=== PATIENT | female | born 1950 | race Caucasian/White ===

== ENCOUNTER 2023-09-29 17:07 | Inpatient (IN) | payer MEDICARE, SELFPAY ==
--- NOTE | ~2023-09-29 | US_ITS ---
EXAMINATION: US venous doppler [facility] DATE: 09/30/2023 09:03 INDICATION: Lower limb swelling. TECHNIQUE: Grayscale ultrasound images without and with compression and Doppler ultrasound images of the bilateral lower extremity veins were obtained. COMPARISON: None. FINDINGS: The visualized portions of right common femoral vein, profunda (deep) femoral vein, femoral vein, pop liteal vein, peroneal veins, posterior tibial veins, and greater saphenous vein outflow are patent. The visualized portions of left common femoral vein, profunda femoral vein, femoral vein, popliteal v ein, peroneal veins, posterior tibial veins, and greater saphenous vein outflow are patent. IMPRESSION: 1. No deep venous thrombosis. Reviewed, dictated and finalized at location A.
--- NOTE | ~2023-09-29 | XR_ITS ---
EXAMINATION: XR chest 1V portable Exam Date/Time: 09/29/2023 17:28 CDT HISTORY: afib RVR Comparison: None. RESULT: Lines, tubes, and devices: None. Lungs and pleura: Bilateral mild costophrenic angle blunting, greater in the right. Emphysematous/se nescent change. Cardiomediastinal silhouette: Mild cardiomegaly versus accentuation by portable technique. Atheroscl erotic arch calcification. Calcified nodes. Other: No acute osseous or upper abdominal finding. IMPRESSION: Likely emphysematous change. Small bilateral pleural effusions versus chronic pleural blunting. Reviewed, dictated and finalized at location K. IMPRESSION: Likely emphysematous change. Small bilateral pleural effusions versus chronic p leural blunting.
--- NOTE | 2023-09-29 17:08 | ADMGEN ---
This patient, Corinne Park, was admitted to IMU Room 232-01 at 1645. Patient/family oriented to hospital policies and general routines including ID bracelet, bed and alarms, visiting hours, pain management, procedures, bathroom and other care routines, personal items, smoking policy, room service/diet, and visiting hours. Information on how to activate the Rapid Response Team has been discussed. Patient/Family are encouraged to report perceived risks to care and to ask questions if they do not understand what they are told or what they should do.
--- NOTE | 2023-09-29 17:11 | PM.IMHP ---
H&P: HPI History of Present Illness Date/Time: 09/29/23 17:11 Chief Complaint: Shortness of Breath and leg swelling, Afib RVR Narrative: This is a 72-year-old female patient unknown past medical history because she has not seen a medical provider for over 15 years. Patient came to the emergency department at [facility] in [place] today due to leg swelling and shortness of breath. Symptoms onset about 1 week ago and have been progressive in nature. She denies chest pain. Patient reports history of chronic anxiety, not on any routine medications. Patient does state that she takes multivitamin, magnesium, vitamin D3, vitamin-C and a few other [id number]-cypjphe vitamin supplements. Patient was found in ER to have fast irregular heartbeat EKG showed atrial fibrillation at 170 beats per minute. Labs were obtained and patient found to have elevated pro BNP over 3000. Magnesium was 1.8 so ER administered IV magnesium. Patient received IV diltiazem and started on a drip at 15 milligrams/hour. CTA was obtained, no pulmonary embolism per verbal report from transferring physician. Paperwork does not include report imaging results or EKG copy. Review of Systems Review of Systems: All systems reviewed & are unremarkable except as noted in HPI and below PMFSH Past Medical History Medical History Anxiety Family History Family History Mother Diabetes mellitus Father Alzheimer's dementia Social History Social History Smoking packs per day: 1 Smoking cigarettes per day: 20.0 Smoking status: Former smoker Tobacco type: cigarettes Alcohol intake: never Substance use: never Do You Feel Safe in your Home?: Yes Lack of Transportation: YES Lack of Food: Never True Current Housing: I Have Housing Concerned About Future Housing: No Difficulty Paying Gas/Electric Bills: No Difficulty Paying for Meds: No Currently Unemployed: No Education: High School Diploma/GED Difficulty w/ Childcare or Family Care: No Spiritual care concerns: No Meds Home Medications and Allergies Allergies Allergy/AdvReac Type Severity Reaction Status Date / Time No Known Allergies Allergy Verified 09/29/23 17:39 Exam Narrative: GENERAL: awake alert no acute distress HEAD: Normocephalic, atraumatic. ENT:? Mucous membranes moist. CHEST: Clear to auscultation.? No respiratory distress. HEART: tachycardic rate irregular rhythm, atrial fibrillation rate of 112 on bedside telemetry monitoring per my interpretation. ? Normal peripheral pulses. ABDOMEN: Soft, nontender, nondistended. EXTREMITIES: Normal range of motion. bilateral lower extremity 2-3+ pitting peripheral edema, negative King's SKIN: Warm dry normal color NEURO: Alert and oriented x3. PSYCH: Normal mood and somewhat anxious affect H&P: Results Imaging Chest x-ray: My impression: No pneumothorax, no large consolidative pneumonia, no diffuse cardiomegaly. Radiologist's impression: EXAMINATION:? XR chest 1V portable Exam Date/Time:? 09/29/2023 17:28 CDT HISTORY: afib RVR ? Comparison:? None. RESULT: Lines, tubes, and devices:? None. Lungs and pleura:? Bilateral mild costophrenic angle blunting, greater in the right. Emphysematous/senescent change. Cardiomediastinal silhouette:? Mild cardiomegaly versus accentuation by portable technique. Atherosclerotic arch calcification. Calcified nodes. Other:? No acute osseous or upper abdominal finding. ? IMPRESSION: Likely emphysematous change. Small bilateral pleural effusions versus chronic pleural blunting. Reviewed, dictated and finalized at location K. Assessment and Plan Assessment and
[2023-09-29 17:24] VITALS: BMI 21.7
[2023-09-29 17:42] LABS: Basophils Percent Auto 0.3 % (0.2-1.2); Hematocrit 48.7 % (37.0-47.0); Immature Granulocyte Absolute 0.03 K/mm3 (0.00-0.031); Immature Granulocyte Percent A 0.3 % (0-0.5); Lymphocytes Absolute Auto 0.49 K/mm3 (0.9-3.2); Lymphocytes Percent Auto 5.6 % (18.3-44.2); Mean Corpuscular HGB Conc 30.8 g/dl (32-36); Mean Corpuscular Hemoglobin 29.6 pg (26-34); Mean Corpuscular Volume 96.1 fl (80-100); Mean Platelet Volume 9.4 fl (7.4-10.4); Monocytes Absolute Auto 0.6 K/mm3 (0.1-0.6); Monocytes Percent Auto 6.3 % (2.6-8.5); Neutrophils Absolute Auto 7.7 K/mm3 (1.3-6.7); Neutrophils Percent Auto 87.5 % (45.5-73.1); Platelet Count Result 200 k/mm3 (150-375); Red Blood Count 5.07 M/mm3 (4.2-5.4); Red Cell Distribution Width 14.2 % (11.5-14.5); White Blood Count 8.8 K/mm3 (4.5-10.0)
[2023-09-29 18:00] VITALS: PULSE 99
[2023-09-29 18:03] LABS: Albumin Level 4.1 g/dL (3.5-5.1); Anion Gap 4 mmol/L (4-12); Blood Urea Nitrogen 21 mg/dL (7-17); Calcium 8.9 mg/dL (8.4-10.2); Carbon Dioxide 33 mmol/L (22-30); Chloride 103 mmol/L (98-107); Estimated CRCL calculation 82 ml/min; Estimated Glomerular Filt Rate > 60; Glucose 125 mg/dL (65-110); Magnesium 2.1 mg/dL (1.6-2.3); Phosphorus 3.9 mg/dL (2.5-4.5); Potassium 4.2 mmol/L (3.4-5.0); Sodium 140 mmol/L (137-145)
[2023-09-29 18:09] LABS: NT Pro B Type Natriuretic Pept 2940 pg/mL (19.9-100)
[2023-09-29 18:59] VITALS: BP 142/77; PULSE 112
[2023-09-29] MEDS: dilTIAZem 100 MG/100 ML 100 MG/100 ML BAG 15 MG IV CONT (18:59)
[2023-09-29] MEDS: FUROSEMIDE INJ 40 MG/4 ML VIAL 20 MG IV PUSH (19:58)
[2023-09-29 20:00] VITALS: BP 140/99; PULSE 100; PULSE 91; O2SAT 95
[2023-09-29 20:27] VITALS: BP 140/99; PULSE 100; RESP 18; TEMP 36.8; O2SAT 95
[2023-09-29 21:51] LABS: Hemoglobin A1C 5.4 % (<5.7)
[2023-09-29 22:00] VITALS: BP 132/90; PULSE 98
[2023-09-30] VITALS (24 sets, daily range): BP systolic 119–155; BP diastolic 58–85; PULSE 80–117; RESP 18–22; TEMP 36.4–37.1; O2SAT 91–98
--- NOTE | 2023-09-30 | ECHO_ITS ---
Patient Info Name: Corinne Park Age: 72 years : 1950 Gender: Female Ht: 67 in Wt: 135 lbs BSA: 1.70 m2 HR: 104 bpm BP: 124 / 67 mmHg Heart Rhythm: Atrial Fibrillation Technical Quality: Poor Exam Date: 09/30/2023 7:31 AM Exam Location: Echo Lab Patient Status: Inpatient Admit Date: 09/29/2023 Staff Ordering Physician: Gaston Delgado APRN Net Sql Developer: Armaan Abraham RDCS Attending Provider: Raffaele Michel MD Referring Physician: Danny PRINCE; Exam Type: CA echo doppler color flow Study Info Indications - elevated proBNP - afib rvr Reason for Poor Study: poor patient cooperation Summary 1. Normal left ventricular size and systolic function. 2. Dilated right atrium. 3. Sclerotic aortic valve but no significant valve dysfunction. 4. Atrial fibrillation. 5. Dilated IVC. Left Ventricle Left ventricular chamber dimension is normal. Left ventricular systolic function is normal, estimated at 55-60%. The left ventricular diastolic function is indeterminate. Right Ventricle Right ventricular chamber dimension is normal. Left Atria Left atrial chamber dimension is normal. Right Atria Right atrial chamber dimension is moderately enlarged. Aortic Valve The aortic valve is trileaflet. There is mild aortic valve sclerosis. Pulmonic Valve The pulmonic valve is not well visualized. Mitral Valve The mitral valve has normal leaflets. There is no mitral valve regurgitation. The mitral valve annulus is mildly calcified. Tricuspid Valve The tricuspid valve leaflets are normal. There is trace tricuspid valve regurgitation. Pericardium/Pleural The pericardium appears normal. Aorta The aortic root size at the sinus of Valsalva is normal. Left Ventricular Outflow Tract Name Value Normal LVOT 2D LVOT Diameter 1.8 cm LVOT Doppler LVOT Peak Gradient 3 mmHg LVOT Mean Gradient 2 mmHg LVOT VTI 13 cm LVOT VTI/AV VTI Ratio 0.6 LVOT Stroke Volume 35 ml LVOT CO 3.4 l/min LVOT CI 2.0 l/min/m2 Pulmonic Valve Name Value Normal PV Doppler PV Peak Gradient 3 mmHg Mitral Valve Name Value Normal MV Doppler MV Peak Gradient 6 mmHg MV Mean Gradient 3 mmHg MV Decel [place] 840 cm/s2 MV PHT 44 ms MV Area (PHT) 5.0 cm2 4.0-5.0 MV Area (Cont Eq VTI) 1.4 cm2 MV Diasto
[2023-09-30] MEDS: ENOXAPARIN 60 MG/0.6 ML SYRINGE SUB-Q ×2 (01:13→08:43)
[2023-09-30] MEDS: dilTIAZem 100 MG/100 ML 100 MG/100 ML BAG 15 MG IV CONT (01:40)
[2023-09-30 04:16] LABS: Basophils Percent Auto 0.6 % (0.2-1.2); Eosinophils Percent Auto 0.6 % (0-4.4); Hematocrit 44.2 % (37.0-47.0); Hemoglobin 13.4 g/dL (12.0-15.0); Immature Granulocyte Absolute 0.03 K/mm3 (0.00-0.031); Immature Granulocyte Percent A 0.4 % (0-0.5); Lymphocytes Absolute Auto 0.39 K/mm3 (0.9-3.2); Lymphocytes Percent Auto 5.6 % (18.3-44.2); Mean Corpuscular HGB Conc 30.3 g/dl (32-36); Mean Corpuscular Hemoglobin 29.3 pg (26-34); Mean Corpuscular Volume 96.5 fl (80-100); Mean Platelet Volume 9.2 fl (7.4-10.4); Monocytes Absolute Auto 0.7 K/mm3 (0.1-0.6); Monocytes Percent Auto 10.1 % (2.6-8.5); Neutrophils Absolute Auto 5.7 K/mm3 (1.3-6.7); Neutrophils Percent Auto 82.7 % (45.5-73.1); Platelet Count Result 154 k/mm3 (150-375); Red Blood Count 4.58 M/mm3 (4.2-5.4); Red Cell Distribution Width 14.1 % (11.5-14.5); White Blood Count 6.9 K/mm3 (4.5-10.0)
[2023-09-30 04:34] LABS: Alanine Aminotransferase 32 U/L (6-35); Albumin Level 3.5 g/dL (3.5-5.1); Alkaline Phosphatase 64 U/L (38-126); Anion Gap 3 mmol/L (4-12); Aspartate Amino Transferase 43 U/L (14-36); Bilirubin,Total 0.9 mg/dL (0.2-1.3); Blood Urea Nitrogen 18 mg/dL (7-17); Calcium 8.6 mg/dL (8.4-10.2); Carbon Dioxide 35 mmol/L (22-30); Chloride 103 mmol/L (98-107); Cholesterol 166 mg/dL (0-200); Estimated CRCL calculation 70 ml/min; Estimated Glomerular Filt Rate > 60; Glucose 99 mg/dL (65-110); HDL Direct 55 mg/dL; Magnesium 1.9 mg/dL (1.6-2.3); Potassium 3.6 mmol/L (3.4-5.0); Sodium 141 mmol/L (137-145); Triglycerides 67 mg/dL (<150)
[2023-09-30 04:44] LABS: LDL Cholesterol Direct 90 mg/dL
--- NOTE | 2023-09-30 05:40 | PC.NURSE ---
Call placed to Dr. Phillips regarding pt's HR sustaining in the 70s and low 80s with some tachy episodes with exertion. MD advised to titrate cardizem drip to 10mg/hr.
--- NOTE | 2023-09-30 06:00 | ECG_ITS ---
[facility] [address] Test Date: 2023-09-30 Pat Name: Corinne Park Department: Room: 232 Gender: F Senior Auditor: : 1950 Requested By: Gaston Jean-Baptiste Order Number: [id number] Caitlyn MD: Esteban Watts D.O. Measurements Intervals [place] Rate: 106 P: 0 IA: 0 QRS: 100 QRSD: 103 T: 0 QT: 285 QTc: 379 Interpretive Statements ATRIAL FIBRILLATION WITH RAPID VENTRICULAR RESPONSE RIGHT AXIS DEVIATION ANTEROSEPTAL INFARCT, AGE INDETERMINATE BORDERLINE ST-T WAVE ABNORMALITY- INFERIOR LEADS BASELINE ARTIFACT- I, II, III, AVR, AVL, AVF, V1-V6 ABNORMAL ECG No previous ECG available for comparison Electronically Signed On 09-30-2023 09:22:58 CDT by Esteban Watts D.O.
[2023-09-30] MEDS: FUROSEMIDE INJ 40 MG/4 ML VIAL 20 MG IV PUSH ×2 (08:43→17:13)
[2023-09-30] MEDS: hydrOXYzine HCL 25 MG TABLET PO (08:47)
[2023-09-30] MEDS: dilTIAZem 100 MG/100 ML 100 MG/100 ML BAG 10 MG IV CONT ×2 (10:00→20:07)
[2023-09-30] MEDS: ACETAMINOPHEN 325 MG TABLET 650 MG PO (10:12)
--- NOTE | 2023-09-30 13:51 | PM.CNCAR ---
Assessment and Plan Assessment and plan (1) Atrial fibrillation with rapid ventricular response: Code(s): I48.91 - Unspecified atrial fibrillation Status: Acute Plan This is a 72-year-old lady with atrial fibrillation of unknown duration presenting with symptoms of shortness of breath and edema for the last couple of weeks. It is likely her atrial fib has been a at least that long in duration, she has no previous medical records for us to review. It is likely that her atrial fib is result of chronic lung disease with previous history of cigarette smoking. In my opinion her chest x-ray looks typical of this type of emphysema. And top of that her echoes shows right atrial enlargement and engorgement of the vena cava. At this time we should pursue a rate control/anticoagulation strategy and along those lines I am going to start oral metoprolol in the hopes of being able to wean off of IV diltiazem and recommend systemic anticoagulation with apixaban. She has no history of hemorrhagic problems. Ideally we can control her heart rate and anticoagulate her for at least 4-6 weeks before attempting to restore sinus rhythm as an outpatient. Momo Sands MD [facility] History of Present Illness History of Present Illness Consult date/time: 09/30/23 13:51 Reason For Visit: Atrial Fibrillation with RVR Narrative: This is a 72-year-old woman I am seeing this afternoon at the request of the hospitalist because of atrial fib with RVR. The patient is not known to me prior to this since she states she is not known to have any previous cardiac problems. She is a lady that does not really follow with a physician for her general medical care and has not seen a physician in quite a few years. She came to the emergency room up in [facility] earlier today reporting symptoms of shortness of breath with activity and increasing lower extremity edema. She states the symptoms began in the last 1-2 weeks and became gradually more prevalent. She does not have any orthopnea or PND. He does not have any chest pain pressure or heaviness. In the emergency room up there she was found to be in AFib with RVR. She was of course started on IV diltiazem which has improved her heart rate and she says she feels much better since being placed on diltiazem. She offers no other complaints she is visiting with her when I came in the room to see her. Review her chart her chest x-ray looks typical of chronic lung disease/emphysema. She is a lady who smoked for many years she quit about 8 years ago. She does not have any history of ethanol excess or other known medical problems to the best of her knowledge. An echocardiogram was done earlier today which I read a short time ago demonstrating evidence of significant right atrial enlargement and dilation of the vena cava. Review of Systems Constitutional: Constitutional: Reports no additional constitutional complaints Eyes: Eyes: Reports no additional eye complaints ENT: Reports system reviewed and no additional complaints, except as documented Cardiovascular: Cardiovascular: Reports as per HPI Respiratory: Respiratory: Reports dyspnea on exertion Gastrointestinal: Gastrointestinal: Reports no additional gastrointestinal complaints Musculoskeletal: Musculoskeletal: Reports back pain Integumentary/Breasts: Skin/Breast: Reports system reviewed and no additional complaints, except as docu Neurologic: Reports system reviewed and no additional complaints, except as documented Endocrine: Endocrine: Reports no additional endocrine complaints Hematologic/Lymphatic: Hematologic/Lymphatic: Reports no additional hematologic/lymphatic complaints Allergic/Immunologic: Allergic/Immunologic: Reports no additional allergic/immunologic complaints [facility] Past Medical History Medical History Anxiety Family History Family History (Reviewed 09/29/23 @
--- NOTE | 2023-09-30 17:38 | PM.IMPN ---
Progress Note: A&P Assessment and Plan (1) Atrial fibrillation with rapid ventricular response: Code(s): I48.91 - Unspecified atrial fibrillation Status: Acute Assessment and Plan: Admit to IMU on Cardizem drip 15 mg/hr Initial rate reported 170 per outside facility Negative CTA per outside facility IV metoprolol 5 mg Q6H PRN for sustained HR above 120 Cardiology consulted and metoprolol added. Recommend anticoagulation currently on Lovenox (2) Anxiety: Code(s): F41.9 - Anxiety disorder, unspecified Status: Acute Assessment and Plan: PRN hydroxyzine 25 mg Q6H for anxiety (3) Fluid overload: Code(s): E87.70 - Fluid overload, unspecified Status: Acute Assessment and Plan: Bilateral lower leg edema 2-3+ pitting IV Lasix 20 mg BID, first dose this evening Echocardiogram o with EF 55-60% no significant valvular abnormality. Cardiology consulted Plan No prior medical history due to not seeing healthcare provider for over 15 years Former smoker, quit 8 years ago Diet: Heart Healthy DVT prophylaxis: Treatment dose Lovenox GI prophylaxis: N/A at this time Code Status: Full Code Subjective Date/time seen: 09/30/23 17:38 Interval history: On diltiazem drip. Feels better. Shortness of breath has improved. No chest pain. Review of Systems Review of Systems: All systems reviewed & are unremarkable except as noted in HPI and below Exam Narrative: GENERAL: awake alert no acute distress HEAD: Normocephalic, atraumatic. ENT:? Mucous membranes moist. CHEST: Clear to auscultation.? No respiratory distress. HEART: AFib with mild tachycardia Normal peripheral pulses. ABDOMEN: Soft, nontender, nondistended. EXTREMITIES: Normal range of motion. bilateral lower extremity 2-3+ pitting peripheral edema, negative King's SKIN: Warm dry normal color NEURO: Alert and oriented x3. PSYCH: Normal mood and somewhat anxious affect Objective Data Vital Signs Vital Signs: Vital Signs - 24 hr 09/29/23 18:59 09/29/23 18:00 09/29/23 20:27 Temperature 98.2 F Pulse Rate 112 H 99 100 Respiratory Rate 18 Blood Pressure 142/77 H 140/99 H Pulse Oximetry 95 Oxygen Delivery Oxygen Flow Rate 09/30/23 00:13 09/29/23 20:00 09/29/23 20:00 Temperature 98.7 F Pulse Rate 90 91 Respiratory Rate 18 Blood Pressure 123/73 Pulse Oximetry 97 95 Oxygen Delivery Nasal Cannula Oxygen Flow Rate 2 09/30/23 00:00 09/30/23 00:00 09/29/23 20:00 Temperature Pulse Rate 87 100 Respiratory Rate Blood Pressure 140/99 H Pulse Oximetry 97 Oxygen Delivery Nasal Cannula Oxygen Flow Rate 2 09/29/23 22:00 09/30/23 00:00 09/30/23 01:39 Temperature Pulse Rate 98 90 85 Respiratory Rate Blood Pressure 132/90 123/73 119/69 Pulse Oximetry Oxygen Delivery Oxygen Flow Rate 09/30/23 01:40 09/30/23 02:00 09/30/23 03:31 Temperature 97.9 F Pulse Rate 85 83 84 Respiratory Rate 18 Blood Pressure 119/69 119/69 119/58 L Pulse Oximetry 96 Oxygen Delivery Oxygen Flow Rate 09/30/23 02:00 09/30/23 04:00 09/30/23 04:00 Temperature Pulse Rate 83 103 H Respiratory Rate Blood Pressure Pulse Oximetry 96 Oxygen Delivery Nasal Cannula Oxygen Flow Rate 2 09/30/23 05:42 09/30/23 04:00 09/30/23 06:00 Temperature Pulse Rate 104 H 103 H 110 H Respiratory Rate Blood Pressure 124/67 124/67 Pulse Oximetry Oxygen Delivery Oxygen Flow Rate 09/30/23 08:00 09/30/23 08:00 09/30/23 08:39 Temperature 97.5 F L Pulse Rate 110 H 100 110 H Respiratory Rate 22 H Blood Pressure 150/66 H 150/66 H Pulse Oximetry 93 Oxygen Delivery Oxygen Flow Rate 09/30/23 08:00 09/30/23 10:00 09/30/23 10:00 Temperature Pulse Rate 99 99 Respiratory Rate Blood Pressure 144/74 H 144/74 H Pulse Oximetry 93 Oxygen Delivery Nasal Cannula Oxygen Flow Rate 2
[2023-09-30] MEDS: APIXABAN 5 MG TABLET PO (20:06)
[2023-09-30] MEDS: METOPROLOL TARTRATE 50 MG TAB PO (20:06)
[2023-10-01] VITALS (28 sets, daily range): BP systolic 104–152; BP diastolic 63–88; PULSE 72–126; RESP 16–23; TEMP 36.4–37.1; O2SAT 90–98
[2023-10-01 04:38] LABS: Basophils Percent Auto 0.6 % (0.2-1.2); Eosinophils Absolute Auto 0.1 K/mm3 (0-0.3); Eosinophils Percent Auto 1.4 % (0-4.4); Hematocrit 46.7 % (37.0-47.0); Hemoglobin 14.1 g/dL (12.0-15.0); Immature Granulocyte Absolute 0.02 K/mm3 (0.00-0.031); Immature Granulocyte Percent A 0.3 % (0-0.5); Lymphocytes Absolute Auto 0.42 K/mm3 (0.9-3.2); Lymphocytes Percent Auto 6.5 % (18.3-44.2); Mean Corpuscular HGB Conc 30.2 g/dl (32-36); Mean Corpuscular Hemoglobin 29.7 pg (26-34); Mean Corpuscular Volume 98.5 fl (80-100); Mean Platelet Volume 9.4 fl (7.4-10.4); Monocytes Absolute Auto 0.7 K/mm3 (0.1-0.6); Monocytes Percent Auto 10.8 % (2.6-8.5); Neutrophils Absolute Auto 5.2 K/mm3 (1.3-6.7); Neutrophils Percent Auto 80.4 % (45.5-73.1); Platelet Count Result 163 k/mm3 (150-375); Red Blood Count 4.74 M/mm3 (4.2-5.4); Red Cell Distribution Width 13.6 % (11.5-14.5); White Blood Count 6.5 K/mm3 (4.5-10.0)
[2023-10-01 04:49] LABS: Alanine Aminotransferase 34 U/L (6-35); Albumin Level 3.6 g/dL (3.5-5.1); Alkaline Phosphatase 64 U/L (38-126); Aspartate Amino Transferase 44 U/L (14-36); Bilirubin,Total 0.8 mg/dL (0.2-1.3); Blood Urea Nitrogen 15 mg/dL (7-17); Calcium 8.8 mg/dL (8.4-10.2); Carbon Dioxide > 40 mmol/L (22-30); Chloride 100 mmol/L (98-107); Estimated CRCL calculation 70 ml/min; Estimated Glomerular Filt Rate > 60; Glucose 110 mg/dL (65-110); Magnesium 1.8 mg/dL (1.6-2.3); Potassium 3.5 mmol/L (3.4-5.0); Sodium 140 mmol/L (137-145)
[2023-10-01] MEDS: dilTIAZem 100 MG/100 ML 100 MG/100 ML BAG 10 MG IV CONT (05:41)
[2023-10-01] MEDS: FUROSEMIDE INJ 40 MG/4 ML VIAL 20 MG IV PUSH ×2 (08:48→15:22)
[2023-10-01] MEDS: METOPROLOL TARTRATE 50 MG TAB PO (08:49)
[2023-10-01] MEDS: APIXABAN 5 MG TABLET PO ×2 (08:49→21:01)
--- NOTE | 2023-10-01 12:56 | PM.PNCARD ---
Progress Note: A&P Assessment and Plan (1) Acute diastolic heart failure: Code(s): I50.31 - Acute diastolic (congestive) heart failure Status: Acute Assessment and Plan: Echocardiogram with LVEF 55-60%, dilated IVC. Continue with IV Lasix for now, will change to daily instead of BID as patient is not able to sleep properly at night due to frequent urination. Please monitor strict I/Os. Keep electrolytes optimized. (2) Atrial fibrillation with rapid ventricular response: Code(s): I48.91 - Unspecified atrial fibrillation Status: Acute Assessment and Plan: Atrial fibrillation of unknown duration presenting with symptoms of shortness of breath and edema for the last couple of weeks.? It is likely her atrial fibrillation has been at least that long in duration, she has no previous medical records for us to review. At this time we should pursue a rate control/anticoagulation strategy. Stop IV Diltiazem. Increase PO Metoprolol to 100mg BID for rate control. Continue Eliquis 5mg BID for stroke risk reduction. Ideally we can control her heart rate and anticoagulate her for at least 4-6 weeks before attempting to restore sinus rhythm as an outpatient. Subjective Date/time seen: 10/01/23 12:56 Interval history: Reason for visit: Atrial fibrillation with RVR, CHF HPI: This is a 72-year-old woman I am seeing this afternoon at the request of the hospitalist because of atrial fib with RVR.? The patient is not known to me prior to this since she states she is not known to have any previous cardiac problems.? She is a lady that does not really follow with a physician for her general medical care and has not seen a physician in quite a few years.? She came to the emergency room up in [facility] earlier today reporting symptoms of shortness of breath with activity and increasing lower extremity edema.? She states the symptoms began in the last 1-2 weeks and became gradually more prevalent.? She does not have any orthopnea or PND.? He does not have any chest pain pressure or heaviness.? In the emergency room up there she was found to be in AFib with RVR.? She was of course started on IV diltiazem which has improved her heart rate and she says she feels much better since being placed on diltiazem.? She offers no other complaints she is visiting with her when I came in the room to see her.? Review her chart her chest x-ray looks typical of chronic lung disease/emphysema.? She is a lady who smoked for many years she quit about 8 years ago.? She does not have any history of ethanol excess or other known medical problems to the best of her knowledge.? An echocardiogram was done earlier today which I read a short time ago demonstrating evidence of significant right atrial enlargement and dilation of the vena cava. Date of service 09/30: Still has lower extremity swelling, R leg > L leg, however, it continues to improve. Reports urinating quite a bit, has been difficult to sleep due to frequent urination. Review of Systems Review of Systems: All systems reviewed & are unremarkable except as noted in HPI and below (HPI) Exam Const: General: comfortable and no acute distress HENMT: Mouth: Yes moist mucous membranes Eyes: General: appearance normal, both eyes and all related structures Sclera: sclerae normal Neck: Neck: supple Resp: Effort & Inspection: normal respiratory effort Other: On supplemental oxygen via nasal cannula Cardio: Rhythm: abnormal rhythm irregularly irregular Other: Bilateral lower extremity edema, R > L Skin: General skin exam: normal color Neuro: Speech: normal speech Psych: Mental Status: mental status grossly normal Affect: normal affect Objective Data Vital Signs Vital Signs: Vital Signs - 24 hr 09/30/23 15:55 09/30/23 14:00 09/30/23 16:00 Temperature 36.7 C Pulse Rate 113 H 98 103 H Respiratory Rate 22 H Blood Pressure 155/83 H Pulse Oximetry 91 Oxyg
--- NOTE | 2023-10-01 14:16 | PM.IMPN ---
Progress Note: A&P Assessment and Plan (1) Atrial fibrillation with rapid ventricular response: Code(s): I48.91 - Unspecified atrial fibrillation Status: Acute Assessment and Plan: Admit to IMU on Cardizem drip 15 mg/hr Initial rate reported 170 per outside facility Negative CTA per outside facility IV metoprolol 5 mg Q6H PRN for sustained HR above 120 Cardiology consulted and metoprolol added. Recommend anticoagulation currently on Lovenox and switched to apixaban now for Metoprolol oral titrated up. Titrate down Cardizem drip as planned today. (2) Anxiety: Code(s): F41.9 - Anxiety disorder, unspecified Status: Acute Assessment and Plan: PRN hydroxyzine 25 mg Q6H for anxiety (3) Fluid overload: Code(s): E87.70 - Fluid overload, unspecified Status: Acute Assessment and Plan: Bilateral lower leg edema 2-3+ pitting IV Lasix 20 mg BID, Echocardiogram o with EF 55-60% no significant valvular abnormality. Cardiology consulted Plan No prior medical history due to not seeing healthcare provider for over 15 years Former smoker, quit 8 years ago Diet: Heart Healthy DVT prophylaxis: Treatment dose Lovenox GI prophylaxis: N/A at this time Code Status: Full Code Subjective Date/time seen: 10/01/23 14:16 Interval history: Remains on diltiazem drip. Overall feels better. Leg swelling has improved but still persists AFib. Will lower diltiazem drip as tolerated today. Review of Systems Review of Systems: All systems reviewed & are unremarkable except as noted in HPI and below Exam Narrative: GENERAL: awake alert no acute distress HEAD: Normocephalic, atraumatic. ENT:? Mucous membranes moist. CHEST: Clear to auscultation.? No respiratory distress. HEART: AFib with mild tachycardia Normal peripheral pulses. ABDOMEN: Soft, nontender, nondistended. EXTREMITIES: Normal range of motion. bilateral lower extremity 2-3+ pitting peripheral edema, negative King's SKIN: Warm dry normal color NEURO: Alert and oriented x3. PSYCH: Normal mood and somewhat anxious affect Objective Data Vital Signs Vital Signs: Vital Signs - 24 hr 09/30/23 15:55 09/30/23 16:00 09/30/23 16:00 Temperature 98.1 F Pulse Rate 113 H 103 H 103 H Respiratory Rate 22 H Blood Pressure 155/83 H 155/83 H Pulse Oximetry 91 Oxygen Delivery Oxygen Flow Rate 09/30/23 16:00 09/30/23 18:00 09/30/23 18:00 Temperature Pulse Rate 109 H 109 H Respiratory Rate Blood Pressure 132/73 Pulse Oximetry 95 Oxygen Delivery Nasal Cannula Oxygen Flow Rate 2 09/30/23 18:00 09/30/23 19:36 09/30/23 20:06 Temperature 97.6 F Pulse Rate 109 H 105 H 117 H Respiratory Rate 22 H Blood Pressure 132/73 154/81 H Pulse Oximetry 98 Oxygen Delivery Oxygen Flow Rate 09/30/23 20:00 09/30/23 20:07 09/30/23 20:00 Temperature Pulse Rate 117 H 117 H Respiratory Rate Blood Pressure Pulse Oximetry 98 Oxygen Delivery Nasal Cannula Oxygen Flow Rate 2 09/30/23 20:00 09/30/23 22:13 09/30/23 22:00 Temperature Pulse Rate 94 80 80 Respiratory Rate Blood Pressure 129/85 Pulse Oximetry Oxygen Delivery Oxygen Flow Rate 10/01/23 00:08 10/01/23 00:00 10/01/23 00:00 Temperature Pulse Rate 72 79 Respiratory Rate Blood Pressure Pulse Oximetry 98 Oxygen Delivery Nasal Cannula Oxygen Flow Rate 2 10/01/23 00:11 10/01/23 02:00 10/01/23 02:06 Temperature 97.6 F Pulse Rate 80 96 96 Respiratory Rate 22 H Blood Pressure 120/63 Pulse Oximetry 96 Oxygen Delivery Oxygen Flow Rate 10/01/23 02:09 10/01/23 04:00 10/01/23 04:21 Temperature 97.6 F Pulse Rate 88 91 Respiratory Rate 18 Blood Pressure 145/88 H Pulse Oximetry 94 94 Oxygen Delivery Nasal Cannula Oxygen Flow Rate 2 10/01/23 04:00 10/01/23 05:41 10/01/23 05:41 Temperature Pulse Rate 90 106 H 10
[2023-10-01] MEDS: METOPROLOL TARTRATE 50 MG TAB 100 MG PO (21:01)
[2023-10-02] VITALS (21 sets, daily range): BP systolic 121–137; BP diastolic 75–118; PULSE 61–132; RESP 16–20; TEMP 36.4–36.8; O2SAT 90–98
[2023-10-02 04:42] LABS: Basophils Percent Auto 0.5 % (0.2-1.2); Eosinophils Absolute Auto 0.1 K/mm3 (0-0.3); Eosinophils Percent Auto 1.4 % (0-4.4); Hematocrit 45.5 % (37.0-47.0); Hemoglobin 13.8 g/dL (12.0-15.0); Immature Granulocyte Absolute 0.02 K/mm3 (0.00-0.031); Immature Granulocyte Percent A 0.3 % (0-0.5); Lymphocytes Absolute Auto 0.44 K/mm3 (0.9-3.2); Lymphocytes Percent Auto 7.1 % (18.3-44.2); Mean Corpuscular HGB Conc 30.3 g/dl (32-36); Mean Corpuscular Hemoglobin 29.7 pg (26-34); Mean Corpuscular Volume 97.8 fl (80-100); Mean Platelet Volume 9.2 fl (7.4-10.4); Monocytes Absolute Auto 0.7 K/mm3 (0.1-0.6); Monocytes Percent Auto 11.1 % (2.6-8.5); Neutrophils Percent Auto 79.6 % (45.5-73.1); Platelet Count Result 154 k/mm3 (150-375); Red Blood Count 4.65 M/mm3 (4.2-5.4); Red Cell Distribution Width 13.6 % (11.5-14.5); White Blood Count 6.2 K/mm3 (4.5-10.0)
[2023-10-02 05:01] LABS: Alanine Aminotransferase 28 U/L (6-35); Albumin Level 3.3 g/dL (3.5-5.1); Alkaline Phosphatase 56 U/L (38-126); Aspartate Amino Transferase 39 U/L (14-36); Bilirubin,Total 0.8 mg/dL (0.2-1.3); Blood Urea Nitrogen 15 mg/dL (7-17); Calcium 8.6 mg/dL (8.4-10.2); Carbon Dioxide > 40 mmol/L (22-30); Chloride 95 mmol/L (98-107); Estimated CRCL calculation 68 ml/min; Estimated Glomerular Filt Rate > 60; Glucose 104 mg/dL (65-110); Magnesium 1.7 mg/dL (1.6-2.3); Potassium 3.3 mmol/L (3.4-5.0); Sodium 139 mmol/L (137-145)
[2023-10-02] MEDS: METOPROLOL TARTRATE 50 MG TAB 100 MG PO ×2 (08:01→19:54)
[2023-10-02] MEDS: APIXABAN 5 MG TABLET PO ×2 (08:01→19:54)
[2023-10-02] MEDS: FUROSEMIDE INJ 40 MG/4 ML VIAL IV PUSH (08:02)
[2023-10-02] MEDS: METOPROLOL TARTRATE INJ 5 MG/5 ML VIAL IV PUSH (09:17)
[2023-10-02] MEDS: MAGNESIUM SULF 1 GM/D5W 100 ML 1 GM/100 ML BAG IVPB (09:17)
[2023-10-02] MEDS: POTASSIUM CHLORIDE 20 MEQ ER TABLET 40 MEQ PO (09:18)
--- NOTE | 2023-10-02 11:47 | PM.IMPN ---
Progress Note: A&P Assessment and Plan (1) Atrial fibrillation with rapid ventricular response: Code(s): I48.91 - Unspecified atrial fibrillation Status: Acute Assessment and Plan: Admit to IMU on Cardizem drip 15 mg/hr Initial rate reported 170 per outside facility Negative CTA per outside facility IV metoprolol 5 mg Q6H PRN for sustained HR above 120 Cardiology consulted and metoprolol added. Recommend anticoagulation currently on Lovenox and switched to apixaban now for Metoprolol oral titrated up. Cardizem drip titrated down with worsened AFib control Started on diltiazem oral for better rate control already on metoprolol 100 mg b.i.d. (2) Anxiety: Code(s): F41.9 - Anxiety disorder, unspecified Status: Acute Assessment and Plan: PRN hydroxyzine 25 mg Q6H for anxiety (3) Fluid overload: Code(s): E87.70 - Fluid overload, unspecified Status: Acute Assessment and Plan: Bilateral lower leg edema 2-3+ pitting IV Lasix 20 mg BID, Echocardiogram o with EF 55-60% no significant valvular abnormality. Cardiology consulted Replace potassium and magnesium Plan No prior medical history due to not seeing healthcare provider for over 15 years Former smoker, quit 8 years ago Diet: Heart Healthy DVT prophylaxis: Treatment dose Lovenox now switched to apixaban GI prophylaxis: N/A at this time Code Status: Full Code Subjective Date/time seen: 10/02/23 11:47 Interval history: Off diltiazem drip since yesterday evening. Heart rate has worsened since then. Overall feels better and no new complaints. Leg swelling has improved telemetry reviewed Review of Systems Review of Systems: All systems reviewed & are unremarkable except as noted in HPI and below Exam Narrative: GENERAL: awake alert no acute distress HEAD: Normocephalic, atraumatic. ENT:? Mucous membranes moist. CHEST: Clear to auscultation.? No respiratory distress. HEART: AFib with mild tachycardia Normal peripheral pulses. ABDOMEN: Soft, nontender, nondistended. EXTREMITIES: Normal range of motion. bilateral lower extremity 2-3+ pitting peripheral edema, negative King's SKIN: Warm dry normal color NEURO: Alert and oriented x3. PSYCH: Normal mood and somewhat anxious affect Objective Data Vital Signs Vital Signs: Vital Signs - 24 hr 10/01/23 11:52 10/01/23 12:00 10/01/23 12:00 Temperature 98.5 F Pulse Rate 87 89 99 Respiratory Rate 16 Blood Pressure 125/77 125/77 Pulse Oximetry 94 Oxygen Delivery Oxygen Flow Rate 10/01/23 12:00 10/01/23 14:00 10/01/23 15:49 Temperature 98.5 F 98.0 F Pulse Rate 94 96 Respiratory Rate 16 20 Blood Pressure 122/63 128/70 Pulse Oximetry 95 98 95 Oxygen Delivery Nasal Cannula Oxygen Flow Rate 2 10/01/23 14:00 10/01/23 16:00 10/01/23 16:00 Temperature Pulse Rate 94 102 H Respiratory Rate Blood Pressure Pulse Oximetry 95 Oxygen Delivery Nasal Cannula Oxygen Flow Rate 2 10/01/23 18:00 10/01/23 20:37 10/01/23 21:01 Temperature 98.1 F Pulse Rate 118 H 118 H 88 Respiratory Rate 23 H Blood Pressure 152/81 H Pulse Oximetry 96 Oxygen Delivery Oxygen Flow Rate 10/01/23 20:00 10/01/23 22:00 10/01/23 20:00 Temperature Pulse Rate 126 H 103 H Respiratory Rate Blood Pressure Pulse Oximetry 96 Oxygen Delivery Nasal Cannula Oxygen Flow Rate 2 10/01/23 23:59 10/02/23 00:00 10/02/23 00:00 Temperature 98.7 F Pulse Rate 105 H 116 H Respiratory Rate 20 Blood Pressure 124/67 Pulse Oximetry 98 98 Oxygen Delivery Nasal Cannula Oxygen Flow Rate 1 10/01/23 22:43 10/02/23 02:00 10/02/23 03:39 Temperature 97.8 F Pulse Rate 110 H 119 H Respiratory Rate 20 Blood Pressure 133/90 Pulse Oximetry 97 91 Oxygen Delivery Nasal Cannula Oxygen Flow Rate 1 10/02/23 04:00 10/02/23 04:00 10/02/23 06:00 Temperature Pulse Rate 114 H
--- NOTE | 2023-10-02 11:56 | PM.PNCARD ---
Progress Note: A&P Assessment and Plan (1) Acute diastolic heart failure: Code(s): I50.31 - Acute diastolic (congestive) heart failure Status: Acute Assessment and Plan: Echocardiogram with LVEF 55-60%, dilated IVC. Continue with IV Lasix for now. Please monitor strict I/Os. Keep electrolytes optimized. (2) Atrial fibrillation with rapid ventricular response: Code(s): I48.91 - Unspecified atrial fibrillation Status: Acute Assessment and Plan: Atrial fibrillation of unknown duration presenting with symptoms of shortness of breath and edema for the last couple of weeks.? It is likely her atrial fibrillation has been at least that long in duration, she has no previous medical records for us to review. At this time we should pursue a rate control/anticoagulation strategy. Stopped IV Diltiazem drip. Increased PO Metoprolol to 100mg BID for rate control. However, patient is back in RVR after stopping IV Diltiazem and despite increasing PO Metoprolol. Therefore, will start PO Diltiazem 60mg Q6H. If she becomes rate controlled with this dosage, then can convert the Diltiazem to 240mg once daily for easing dosing schedule. Continue Eliquis 5mg BID for stroke risk reduction. Ideally we can control her heart rate and anticoagulate her for at least 4-6 weeks before attempting to restore sinus rhythm as an outpatient. Plan Recommendations and plan discussed with Hospitalist. Subjective Date/time seen: 10/02/23 11:56 Interval history: Reason for visit: Atrial fibrillation with RVR, CHF HPI: This is a 72-year-old woman I am seeing this afternoon at the request of the hospitalist because of atrial fib with RVR.? The patient is not known to me prior to this since she states she is not known to have any previous cardiac problems.? She is a lady that does not really follow with a physician for her general medical care and has not seen a physician in quite a few years.? She came to the emergency room up in [facility] earlier today reporting symptoms of shortness of breath with activity and increasing lower extremity edema.? She states the symptoms began in the last 1-2 weeks and became gradually more prevalent.? She does not have any orthopnea or PND.? He does not have any chest pain pressure or heaviness.? In the emergency room up there she was found to be in AFib with RVR.? She was of course started on IV diltiazem which has improved her heart rate and she says she feels much better since being placed on diltiazem.? She offers no other complaints she is visiting with her when I came in the room to see her.? Review her chart her chest x-ray looks typical of chronic lung disease/emphysema.? She is a lady who smoked for many years she quit about 8 years ago.? She does not have any history of ethanol excess or other known medical problems to the best of her knowledge.? An echocardiogram was done earlier today which I read a short time ago demonstrating evidence of significant right atrial enlargement and dilation of the vena cava. Date of service 09/30: Still has lower extremity swelling, R leg > L leg, however, it continues to improve. Reports urinating quite a bit, has been difficult to sleep due to frequent urination. Date of service 10/01: Lower extremity edema is improving. Still with some swelling but continues to improve. Urinating well, has been able to sleep at night since we are no longer giving her an evening dose of Lasix. Review of Systems Review of Systems: All systems reviewed & are unremarkable except as noted in HPI and below (HPI) Exam Const: General: comfortable and no acute distress HENMT: Mouth: Yes moist mucous membranes Eyes: General: appearance normal, both eyes and all related structures Sclera: sclerae normal Neck: Neck: supple Resp: Effort & Inspection: normal respiratory effort Other: On supplemental oxygen via nasal cannula Cardio: Rate: tachycardic Rhythm: abnormal rhythm
[2023-10-02] MEDS: dilTIAZem HCL 60 MG TABLET PO ×3 (12:28→23:45)
[2023-10-03] VITALS (20 sets, daily range): BP systolic 119–149; BP diastolic 78–103; PULSE 69–105; RESP 16–26; TEMP 36.4–37.2; O2SAT 89–96
[2023-10-03 04:30] LABS: Basophils Percent Auto 0.7 % (0.2-1.2); Eosinophils Absolute Auto 0.2 K/mm3 (0-0.3); Eosinophils Percent Auto 2.9 % (0-4.4); Hematocrit 48.3 % (37.0-47.0); Hemoglobin 14.4 g/dL (12.0-15.0); Immature Granulocyte Absolute 0.03 K/mm3 (0.00-0.031); Immature Granulocyte Percent A 0.5 % (0-0.5); Lymphocytes Absolute Auto 0.54 K/mm3 (0.9-3.2); Lymphocytes Percent Auto 9.2 % (18.3-44.2); Mean Corpuscular HGB Conc 29.8 g/dl (32-36); Mean Corpuscular Hemoglobin 29.1 pg (26-34); Mean Corpuscular Volume 97.8 fl (80-100); Mean Platelet Volume 9.3 fl (7.4-10.4); Monocytes Absolute Auto 0.7 K/mm3 (0.1-0.6); Monocytes Percent Auto 11.8 % (2.6-8.5); Neutrophils Absolute Auto 4.4 K/mm3 (1.3-6.7); Neutrophils Percent Auto 74.9 % (45.5-73.1); Platelet Count Result 148 k/mm3 (150-375); Red Blood Count 4.94 M/mm3 (4.2-5.4); Red Cell Distribution Width 13.6 % (11.5-14.5); White Blood Count 5.8 K/mm3 (4.5-10.0)
[2023-10-03 04:54] LABS: Platelet Estimate Slightly Decreased (Adequate)
[2023-10-03 04:55] LABS: Anisocytosis 1+; Large Platelets Present; Schistocytes None Seen; Stomatocytes 1+
[2023-10-03 05:19] LABS: Alanine Aminotransferase 26 U/L (6-35); Albumin Level 3.2 g/dL (3.5-5.1); Alkaline Phosphatase 56 U/L (38-126); Aspartate Amino Transferase 42 U/L (14-36); Bilirubin,Total 0.8 mg/dL (0.2-1.3); Blood Urea Nitrogen 20 mg/dL (7-17); Calcium 8.8 mg/dL (8.4-10.2); Carbon Dioxide > 40 mmol/L (22-30); Chloride 97 mmol/L (98-107); Estimated CRCL calculation 59 ml/min; Estimated Glomerular Filt Rate > 60; Glucose 94 mg/dL (65-110); Magnesium 1.8 mg/dL (1.6-2.3); Potassium 3.4 mmol/L (3.4-5.0); Sodium 140 mmol/L (137-145)
[2023-10-03] MEDS: dilTIAZem HCL 60 MG TABLET PO ×3 (06:47→18:05)
[2023-10-03] MEDS: METOPROLOL TARTRATE 50 MG TAB 100 MG PO ×2 (08:32→20:11)
[2023-10-03] MEDS: APIXABAN 5 MG TABLET PO ×2 (08:32→20:11)
[2023-10-03] MEDS: FUROSEMIDE INJ 40 MG/4 ML VIAL IV PUSH (08:32)
--- NOTE | 2023-10-03 09:55 | PM.PNCARD ---
Progress Note: A&P Assessment and Plan (1) Acute diastolic heart failure: Code(s): I50.31 - Acute diastolic (congestive) heart failure Status: Acute Assessment and Plan: Echocardiogram with LVEF 55-60%, dilated IVC. Diuresed well with IV furosemide. Swelling has nearly resolved. Can shift to p.o. furosemide today. Please monitor strict I/Os. Keep electrolytes optimized. (2) Atrial fibrillation with rapid ventricular response: Code(s): I48.91 - Unspecified atrial fibrillation Status: Acute Assessment and Plan: Atrial fibrillation of unknown duration presenting with symptoms of shortness of breath and edema for the last couple of weeks.? It is likely her atrial fibrillation has been at least that long in duration, she has no previous medical records for us to review. Rate controlled on current Diltiazem dose, so will shift to Diltiazem to 240mg once daily for easing dosing schedule. Continue Eliquis 5mg BID for stroke risk reduction. Ideally we can control her heart rate and anticoagulate her for at least 4-6 weeks before attempting to restore sinus rhythm as an outpatient. Plan Recommendations and plan discussed with Hospitalist. Subjective Date/time seen: 10/03/23 09:55 Interval history: Reason for visit: Atrial fibrillation with RVR, CHF HPI: This is a 72-year-old woman I am seeing this afternoon at the request of the hospitalist because of atrial fib with RVR.? The patient is not known to me prior to this since she states she is not known to have any previous cardiac problems.? She is a lady that does not really follow with a physician for her general medical care and has not seen a physician in quite a few years.? She came to the emergency room up in [facility] earlier today reporting symptoms of shortness of breath with activity and increasing lower extremity edema.? She states the symptoms began in the last 1-2 weeks and became gradually more prevalent.? She does not have any orthopnea or PND.? He does not have any chest pain pressure or heaviness.? In the emergency room up there she was found to be in AFib with RVR.? She was of course started on IV diltiazem which has improved her heart rate and she says she feels much better since being placed on diltiazem.? She offers no other complaints she is visiting with her when I came in the room to see her.? Review her chart her chest x-ray looks typical of chronic lung disease/emphysema.? She is a lady who smoked for many years she quit about 8 years ago.? She does not have any history of ethanol excess or other known medical problems to the best of her knowledge.? An echocardiogram was done earlier today which I read a short time ago demonstrating evidence of significant right atrial enlargement and dilation of the vena cava. Date of service 09/30: Still has lower extremity swelling, R leg > L leg, however, it continues to improve. Reports urinating quite a bit, has been difficult to sleep due to frequent urination. Date of service 10/01: Lower extremity edema is improving. Still with some swelling but continues to improve. Urinating well, has been able to sleep at night since we are no longer giving her an evening dose of Lasix. Date of service 10/03/2023: Feeling well today. Swelling nearly resolved. Rate is well controlled. No chest pain, palpitations, shortness of breath. Review of Systems Review of Systems: All systems reviewed & are unremarkable except as noted in HPI and below (HPI) Constitutional: Constitutional: Reports no additional constitutional complaints Eyes: Eyes: Reports no additional eye complaints ENT: Reports system reviewed and no additional complaints, except as documented Cardiovascular: Cardiovascular: Reports as per HPI and Reports dyspnea on exertion Respiratory: Respiratory: Reports dyspnea on exertion Gastrointestinal: Gastrointestinal: Reports no additional gastrointestinal complaints Musculoskeletal: Mu
[2023-10-03] MEDS: hydrOXYzine HCL 25 MG TABLET PO (14:23)
--- NOTE | 2023-10-03 16:40 | PM.IMPN ---
Progress Note: A&P Assessment and Plan (1) Atrial fibrillation with rapid ventricular response: Code(s): I48.91 - Unspecified atrial fibrillation Status: Acute Assessment and Plan: Admit to IMU on Cardizem drip 15 mg/hr Initial rate reported 170 per outside facility Negative CTA per outside facility IV metoprolol 5 mg Q6H PRN for sustained HR above 120 Cardiology consulted and metoprolol added. Recommend anticoagulation currently on Lovenox and switched to apixaban now for Metoprolol oral titrated up. Cardizem drip titrated down with worsened AFib control Started on diltiazem oral for better rate control already on metoprolol 100 mg b.i.d. Switched to long-acting diltiazem at discharge. (2) Anxiety: Code(s): F41.9 - Anxiety disorder, unspecified Status: Acute Assessment and Plan: PRN hydroxyzine 25 mg Q6H for anxiety (3) Fluid overload: Code(s): E87.70 - Fluid overload, unspecified Status: Acute Assessment and Plan: Bilateral lower leg edema 2-3+ pitting IV Lasix 20 mg BID, Echocardiogram o with EF 55-60% no significant valvular abnormality. Cardiology consulted Replace potassium and magnesium On Lasix daily Plan No prior medical history due to not seeing healthcare provider for over 15 years Former smoker, quit 8 years ago COPD new diagnosis long-term smoking history. Emphysematous changes. Add Symbicort and Spiriva at discharge. Follow-up with Pulmonary at discharge. Also need to see PCP. Diet: Heart Healthy DVT prophylaxis: Treatment dose Lovenox now switched to apixaban GI prophylaxis: N/A at this time Code Status: Full Code Subjective Date/time seen: 10/03/23 16:40 Interval history: Patient feels well. Heart rate is controlled. Discussed Cardiology. Okay per did show per Cardiology. Remains on oxygen 1 L. has not ambulated much. Review of Systems Review of Systems: All systems reviewed & are unremarkable except as noted in HPI and below Exam Narrative: GENERAL: awake alert no acute distress HEAD: Normocephalic, atraumatic. ENT:? Mucous membranes moist. CHEST: Clear to auscultation.? No respiratory distress. HEART: AFib with mild tachycardia Normal peripheral pulses. ABDOMEN: Soft, nontender, nondistended. EXTREMITIES: Normal range of motion. bilateral lower extremity 1+ pitting peripheral edema, negative King's SKIN: Warm dry normal color NEURO: Alert and oriented x3. PSYCH: Normal mood and somewhat anxious affect Objective Data Vital Signs Vital Signs: Vital Signs - 24 hr 10/02/23 18:00 10/02/23 19:31 10/02/23 19:32 Temperature Pulse Rate 94 89 89 Respiratory Rate 16 Blood Pressure Pulse Oximetry 92 Oxygen Delivery Nasal Cannula Oxygen Flow Rate 2 10/02/23 19:54 10/02/23 20:00 10/02/23 22:00 Temperature 98.1 F Pulse Rate 96 90 90 Respiratory Rate 16 Blood Pressure 136/87 Pulse Oximetry 91 Oxygen Delivery Oxygen Flow Rate 10/02/23 23:30 10/02/23 23:31 10/02/23 23:55 Temperature 97.5 F L Pulse Rate 87 87 94 Respiratory Rate 16 18 Blood Pressure 121/75 Pulse Oximetry 91 96 Oxygen Delivery Nasal Cannula Oxygen Flow Rate 2 10/03/23 02:00 10/03/23 03:40 10/03/23 03:41 Temperature Pulse Rate 84 88 88 Respiratory Rate 18 Blood Pressure Pulse Oximetry 96 Oxygen Delivery Nasal Cannula Oxygen Flow Rate 2 10/03/23 04:00 10/03/23 06:00 10/03/23 07:45 Temperature 97.5 F L 99 F Pulse Rate 82 105 H 95 Respiratory Rate 16 26 H Blood Pressure 144/78 H 119/83 Pulse Oximetry 93 89 L Oxygen Delivery Oxygen Flow Rate 10/03/23 08:32 10/03/23 08:00 10/03/23 08:00 Temperature Pulse Rate 83 85 Respiratory Rate Blood Pressure Pulse Oximetry 93 Oxygen Delivery Nasal Cannula Oxygen Flow Rate 1 10/03/23 10:00 10/03/23 11:38 10/03/23 12:00 Temperature 98.5 F Pulse Rate 73 92 Respiratory Rate 18 B
[2023-10-03] MEDS: FLUTICASONE/SALMETEROL 115-21 MCG INHALER 1 PUFF 2 PUFF INHALATION (20:45)
[2023-10-04] VITALS (18 sets, daily range): BP systolic 123–135; BP diastolic 70–78; PULSE 77–117; RESP 16–24; TEMP 36.4–36.9; O2SAT 87–96
[2023-10-04] MEDS: dilTIAZem HCL 60 MG TABLET PO ×3 (01:00→11:55)
[2023-10-04 05:10] LABS: Basophils Percent Auto 0.6 % (0.2-1.2); Eosinophils Absolute Auto 0.1 K/mm3 (0-0.3); Eosinophils Percent Auto 1.8 % (0-4.4); Hematocrit 50.5 % (37.0-47.0); Hemoglobin 15.3 g/dL (12.0-15.0); Immature Granulocyte Absolute 0.03 K/mm3 (0.00-0.031); Immature Granulocyte Percent A 0.4 % (0-0.5); Immature Platelet Fraction Pct 3.2 % (0.9-11.2); Lymphocytes Absolute Auto 0.48 K/mm3 (0.9-3.2); Lymphocytes Percent Auto 6.7 % (18.3-44.2); Mean Corpuscular HGB Conc 30.3 g/dl (32-36); Mean Corpuscular Hemoglobin 29.2 pg (26-34); Mean Corpuscular Volume 96.4 fl (80-100); Mean Platelet Volume 9.5 fl (7.4-10.4); Monocytes Absolute Auto 0.7 K/mm3 (0.1-0.6); Monocytes Percent Auto 9.4 % (2.6-8.5); Neutrophils Absolute Auto 5.8 K/mm3 (1.3-6.7); Neutrophils Percent Auto 81.1 % (45.5-73.1); Platelet Count Result 156 k/mm3 (150-375); Red Blood Count 5.24 M/mm3 (4.2-5.4); Red Cell Distribution Width 13.7 % (11.5-14.5); White Blood Count 7.2 K/mm3 (4.5-10.0)
[2023-10-04 05:28] LABS: Alanine Aminotransferase 29 U/L (6-35); Albumin Level 3.6 g/dL (3.5-5.1); Alkaline Phosphatase 63 U/L (38-126); Aspartate Amino Transferase 39 U/L (14-36); Bilirubin,Total 1.1 mg/dL (0.2-1.3); Blood Urea Nitrogen 19 mg/dL (7-17); Calcium 8.9 mg/dL (8.4-10.2); Carbon Dioxide > 40 mmol/L (22-30); Chloride 92 mmol/L (98-107); Estimated CRCL calculation 58 ml/min; Estimated Glomerular Filt Rate > 60; Glucose 88 mg/dL (65-110); Magnesium 1.9 mg/dL (1.6-2.3); Potassium 3.1 mmol/L (3.4-5.0); Sodium 140 mmol/L (137-145)
[2023-10-04] MEDS: UMECLIDINIUM BROMIDE 62.5 MCG ELLIPTA 1 PUFF INHALATION (08:35)
[2023-10-04] MEDS: FLUTICASONE/SALMETEROL 115-21 MCG INHALER 1 PUFF 2 PUFF INHALATION (08:36)
[2023-10-04] MEDS: FUROSEMIDE 40 MG TABLET PO (09:01)
[2023-10-04] MEDS: METOPROLOL TARTRATE 50 MG TAB 100 MG PO (09:01)
[2023-10-04] MEDS: APIXABAN 5 MG TABLET PO (09:02)
[2023-10-04] MEDS: POTASSIUM CHLORIDE 20 MEQ ER TABLET 40 MEQ PO (09:04)
--- NOTE | 2023-10-04 11:48 | HOMEO2EVAL ---
Evaluation was performed at [facility] Home Oxygen Evaluation RC: Home Oxygen (O2) Evaluation Start: 10/03/23 11:57 Freq: ONCE Status: Active Protocol: RPE Activity Type Activity Date Activity User E-sign Co-sign Detail Recorded Client Recorded Date Recorded By Document 10/04/23 11:30 ELINA [email or web address] 10/04/23 11:48 ELINA Document 10/04/23 11:31 ELINA [email or web address] 10/04/23 11:48 ELINA Document 10/04/23 11:32 ELINA [email or web address] 10/04/23 11:48 ELINA Document 10/04/23 11:34 ELINA [email or web address] 10/04/23 11:48 ELINA Document 10/04/23 11:45 ELINA [email or web address] 10/04/23 11:48 ELINA 10/04/23 10/04/23 10/04/23 11:30 11:31 11:32 Home O2 Evaluation [Oxygen] -Test Phase Resting Resting Resting -Oxygen Delivery Room Air Nasal Cannula Nasal Cannula -Oxygen Flow Rate (L/min) 1 2 [Pulse Oximetry] -Pulse Oximetry (90-100 %) 87 L 87 L 92 [Pulse Rate] -Pulse Rate (60-100 beats/min) 90 [Exercise] -Ambulation Distance (feet) -Ambulation Distance (meters) [Comments] -Home Oxygen Evaluation Comments [Charges] -Evaluation Charges O2 Evaluation by Pulmonary 10/04/23 10/04/23 11:34 11:45 Home O2 Evaluation [Oxygen] -Test Phase Exercise Resting -Oxygen Delivery Nasal Cannula Nasal Cannula -Oxygen Flow Rate (L/min) 2 2 [Pulse Oximetry] -Pulse Oximetry (90-100 %) 90 93 [Pulse Rate] -Pulse Rate (60-100 beats/min) 117 H 86 [Exercise] -Ambulation Distance (feet) 350 -Ambulation Distance (meters) 106.67 [Comments] -Home Oxygen Evaluation Comments Pt. requires 2 liters home O2 at rest and with activity [Charges] -Evaluation Charges
[2023-10-04] MEDS: hydrOXYzine HCL 25 MG TABLET PO (11:55)
--- NOTE | 2023-10-04 11:59 | PCRCNOTE ---
wILL ARRANGE HOME O2 WITH [facility]. 2 L REST AND WITH ACTIVITY. WILL BRING TANK TO ROOM PRIOR TO D/C FOR TRANSPORT HOME.
--- NOTE | 2023-10-04 12:49 | PM.DS ---
DS: Admitting Diagnosis Discharge Date 10/04/2023 Admitting Diagnosis AFib CHF DS: Discharge Diagnosis Discharge Diagnosis (1) Atrial fibrillation with rapid ventricular response: Code(s): I48.91 - Unspecified atrial fibrillation Status: Acute (2) Anxiety: Code(s): F41.9 - Anxiety disorder, unspecified Status: Acute (3) Fluid overload: Code(s): E87.70 - Fluid overload, unspecified Status: Acute DS: Summary Hospital Course Hospital Course: # Atrial fibrillation with rapid ventricular response: Newly diagnosed. Admitted to IMU was started on Cardizem drip. Initial rate reported 170 per outside facility Negative CTA per outside facility IV metoprolol 5 mg Q6H PRN for sustained HR above 120 Cardiology consulted and metoprolol added. Recommend anticoagulation currently on Lovenox and switched to apixaban now for Metoprolol oral titrated up. Cardizem drip titrated down with worsened AFib control Started on diltiazem oral for better rate control already on metoprolol 100 mg b.i.d. Switched to long-acting diltiazem along with metoprolol at discharge. Continue Eliquis at discharge # Anxiety: PRN hydroxyzine 25 mg Q6H for anxiety # Fluid overload: Bilateral lower leg edema 2-3+ pitting IV Lasix 20 mg BID, Echocardiogram o with EF 55-60% no significant valvular abnormality. Cardiology consulted Replace potassium and magnesium On Lasix daily # No prior medical history due to not seeing healthcare provider for over 15 years # Former smoker, quit 8 years ago # COPD new diagnosis long-term smoking history. Emphysematous changes on chest x-ray. Add Symbicort and Spiriva at discharge. Follow-up with Pulmonary at discharge. Also need to see PCP. # hypoxia noted on admission remain hypoxic and unable to titrate off oxygen. Home oxygen evaluation was done and required 2 L with rest and activity Diet: Heart Healthy DVT prophylaxis: Treatment dose Lovenox now switched to apixaban GI prophylaxis: N/A at this time Code Status: Full Code Time Spent with Patient Time attestation: Total time spent providing and/or coordinating discharge services: 35 minutes Exam Narrative: GENERAL: awake alert no acute distress HEAD: Normocephalic, atraumatic. ENT:? Mucous membranes moist. CHEST: Clear to auscultation.? No respiratory distress. HEART: AFib with rate controlled Normal peripheral pulses. ABDOMEN: Soft, nontender, nondistended. EXTREMITIES: Normal range of motion. bilateral lower extremity 1+ pitting peripheral edema, negative King's SKIN: Warm dry normal color NEURO: Alert and oriented x3. PSYCH: Normal mood and somewhat anxious affect DS: Data Data Completed and Pending Completed studies during hospitalization: Exam Type: CA echo doppler color flow Study Info Indications - elevated proBNP - afib rvr Reason for Poor Study: poor patient cooperation Summary 1. Normal left ventricular size and systolic function. 2. Dilated right atrium. 3. Sclerotic aortic valve but no significant valve dysfunction. 4. Atrial fibrillation. 5. Dilated IVC. Left Ventricle Left ventricular chamber dimension is normal. Left ventricular systolic function is normal, estimated at 55-60%. The left ventricular diastolic function is indeterminate. Right Ventricle Right ventricular chamber dimension is normal. Left Atria Left atrial chamber dimension is normal. Right Atria Right atrial chamber dimension is moderately enlarged. Aortic Valve The aortic valve is trileaflet. There is mild aortic valve sclerosis. Pulmonic Valve The pulmonic valve is not well visualized. Mitral Valve The mitral valve has normal leaflets. There is no mitral valve regurgitation. The mitral valve annulus is mildly calcified. Tricuspid Valve The tricuspid valve leaflets are normal. There is trace tricuspid
--- NOTE | 2023-10-04 15:29 | PC.NURSE ---
10/04/23 14:14 reviewed discharge paperwork, including medication sheet with patient and patient spouse. Answered all questions. Wheeled out to personal vehicle with oxygen tank ordered to be sent home with patient.
== END 2023-10-04 14:14 | disposition home or self-care (01) | DRG 308 ==
PROVIDERS: Nurse Practitioner; Admitting Provider Family Medicine; Visit Provider Internal Medicine
DX: I48.91 Unspecified atrial fibrillation (principal); I50.31 Acute diastolic (congestive) heart failure; J44.9 Chronic obstructive pulmonary disease, unspecified; F41.9 Anxiety disorder, unspecified; Z87.891 Personal history of nicotine dependence
CPT/HCPCS: 36415; 71045; 80053; 80061; 80069; 83036; 83735; 83880; 84443; 85025; 85055; 93005; 93306; 93970; 94618; 94640; 96372; 96374; 96376; A9270; G0378; J1650; J1940; J3475

== ENCOUNTER 2023-11-07 00:06 | Day surgery (SDC) | payer MEDICARE, SELFPAY ==
[2023-11-04 10:20] VITALS: BMI 20.9
--- NOTE | 2023-11-07 06:30 | ECG_ITS ---
Test Date: 2023-11-07 07:08:39 Measurements Intervals [place] Rate: 97 P: 0 [place]: 0 QRS: 98 QRSD: 90 T: 57 QT: 355 QTc: 452 Interpretive Statements ATRIAL FIBRILLATION ANTEROSEPTAL INFARCT, AGE INDETERMINATE BORDERLINE ST-T WAVE ABNORMALITY- INFERIOR LEADS BASELINE ARTIFACT- I, II, III, AVR, AVL, AVF, V1-V6 ABNORMAL ECG Compared to ECG 09/30/2023 07:13:37 HEART RATE HAS DECREASED Electronically Signed On 11-07-2023 08:24:06 CDT by Esteban Watts D.O.
--- NOTE | 2023-11-07 06:30 | ECG_ITS ---
Test Date: 2023-11-07 08:35:03 Measurements Intervals [place] Rate: 58 P: 76 [place]: 147 QRS: 105 QRSD: 97 T: 56 QT: 414 QTc: 408 Interpretive Statements SINUS BRADYCARDIA RIGHT AXIS DEVIATION POSSIBLE LEFT ATRIAL ENLARGEMENT ANTEROSEPTAL INFARCT, AGE INDETERMINATE BORDERLINE ST ABNORMALITY- INFERIOR LEADS ABNORMAL ECG Compared to ECG 11/07/2023 07:08:39 SINUS BRADYCARDIA NOW PRESENT Electronically Signed On 11-07-2023 10:10:31 CDT by Esteban Watts D.O.
[2023-11-07 07:06] VITALS: BP 136/99; PULSE 100; RESP 20; TEMP 37.2; O2SAT 100
--- NOTE | 2023-11-07 07:10 | WPDANESEPPF ---
Anes - Initial Pre Proc Eval Procedure: Operation Date: 11/07/23 08:00 Proposed Procedures p Electrical Cardioversion - Momo Sands MD Date/Time: 11/07/23 07:10 Surgeon: Momo Sands MD Pre Op Diagnosis: a-fib Patient Data Age: 72 Gender: F Height: 1.68 m Weight: 59 kg Allergies Allergy/AdvReac Type Severity Reaction Status Date / Time No Known Allergies Allergy Verified 11/04/23 10:36 Home Medications Medication Instructions Recorded Confirmed Type albuterol sulfate 90 mcg/actuation 2 puff inhalation QID PRN 10/03/23 11/04/23 Rx aerosol inhaler shortness of breath or wheezing #8.5 grams apixaban 5 mg tablet (Eliquis) 5 mg PO Q12HR #60 tabs 10/03/23 11/04/23 Rx budesonide-formoterol HFA 80 2 puff inhalation Q12H #10.2 grams 10/03/23 11/04/23 Rx mcg-4.5 mcg/actuation aerosol inhaler (Symbicort) diltiazem HCl 240 mg 240 mg PO DAILY #30 caps 10/03/23 11/04/23 Rx capsule,extended release 24 hr (Cartia XT) furosemide 40 mg tablet 40 mg PO DAILY #30 tabs 10/03/23 11/04/23 Rx hydroxyzine HCl 25 mg tablet 25 mg PO Q6H PRN Anxiety #30 tabs 10/03/23 11/04/23 Rx metoprolol tartrate 50 mg tablet 100 mg PO Q12HR #120 tabs 10/03/23 11/04/23 Rx tiotropium bromide 1.25 2 puff inhalation QAM #4 grams 10/03/23 11/04/23 Rx mcg/actuation mist for inhalation (Spiriva Respimat) Patient hx anesthesia problems: none Family hx anesthesia problems: none Results Review: All pre-operative results and documents have been reviewed as part of the pre-operative evaluation. [facility] Past Medical History Medical History (Updated 11/07/23 @ 07:10 by Mohamud Porter MD) Acute diastolic heart failure Anxiety Atrial fibrillation with rapid ventricular response Fluid overload Family History Family History Mother Diabetes mellitus Father Alzheimer's dementia Social History Social History Smoking packs per day: 1 Smoking cigarettes per day: 20.0 Years smoked: 50 Smoking pack-years: 50.00 Smoking status: Former smoker Tobacco type: cigarettes Second hand tobacco smoke exposure: Yes Smoking end date: 05/02/14 Alcohol intake: never Substance use: never Do You Feel Safe in your Home?: Yes Lack of Transportation: YES Lack of Food: Never True Current Housing: I Have Housing Concerned About Future Housing: No Difficulty Paying Gas/Electric Bills: No Difficulty Paying for Meds: No Currently Unemployed: No Education: High School Diploma/GED Difficulty w/ Childcare or Family Care: No Living arrangements: with family Spiritual care concerns: No Anes - Eval Final PreProcedure Day of Procedure 11/07/23 07:10 Results Review: All pre-operative results and documents have been reviewed as part of the pre-operative evaluation. Informed Consent: The patient's anesthetic plan and its attendant risks and benefits were discussed with the patient/family/POA. Questions were solicited and answers provided to the satisfaction of the patient/family/POA.
[2023-11-07 07:38] LABS: Blood Urea Nitrogen 22 mg/dL (7-17); Calcium 9.4 mg/dL (8.4-10.2); Carbon Dioxide > 40 mmol/L (22-30); Chloride 92 mmol/L (98-107); Estimated CRCL calculation 67 ml/min; Estimated Glomerular Filt Rate > 60; Glucose 134 mg/dL (65-110); Magnesium 1.9 mg/dL (1.6-2.3); Potassium 3.5 mmol/L (3.4-5.0); Sodium 140 mmol/L (137-145)
--- NOTE | 2023-11-07 08:39 | P.PCNCC_ITS ---
Cardiac Cath Procedure Note Date of procedure:: 11/07/23 Performing physician:: Momo Sands MD Indication:: Atrial fibrillation of recent onset COPD Brief clinical history:: This is a 72-year-old woman with significant COPD who was found recently to have atrial fibrillation and worsening shortness breath. She was treated with anticoagulation and rate controlled with metoprolol and diltiazem. She has now been anticoagulated for more than 4 weeks and attempt is made being made this morning to restore sinus rhythm electrically. Procedure Procedure performed:: DC cardioversion Sedation/Medication given:: Sedation per the Anesthesia Service Estimated blood loss:: None Procedure note:: Patient was brought to the cardiac catheterization lab postanesthesia unit where she was in the postabsorptive state in the supine position with defibrillator patches in the AP position. IV access was established in the right arm. The patient was then sedated by the anesthesia service. When she was adequately sedated she was then counter shocked with 200 joules in a synchronized fashion which did not convert her. She was then cardioverted a 2nd time in a synchronized fashion with 360 joules which restored sinus rhythm/sinus bradycardia Findings:: As above Conclusion:: Successful uncomplicated DC cardioversion terminating atrial fibrillation, restoring sinus rhythm but requiring 360 joule shock to accomplish cardioversion. Momo Sands MD [facility]
[2023-11-07 08:45] VITALS: BP 111/70; PULSE 67; RESP 22; O2SAT 98
[2023-11-07 09:00] VITALS: BP 130/104; PULSE 73; RESP 22; O2SAT 99
[2023-11-07 09:15] VITALS: BP 122/67; PULSE 77; RESP 22; O2SAT 95
[2023-11-07 09:30] VITALS: BP 125/74; PULSE 70; RESP 23; O2SAT 97
== END 2023-11-07 09:50 | disposition home or self-care (01) ==
PROVIDERS: Visit Provider Specialist
PROC: 5A2204Z Restoration of Cardiac Rhythm, Single (ICD-10-PCS; principal; 2023-11-07 08:00)
DX: I48.19 Other persistent atrial fibrillation (principal); J44.9 Chronic obstructive pulmonary disease, unspecified; I50.32 Chronic diastolic (congestive) heart failure; Z79.01 Long term (current) use of anticoagulants
CPT/HCPCS: 36415; 80048; 83735; 92960; A9270; J7030